=== PATIENT | female | born 1980 | race Caucasian/White ===

== ENCOUNTER → 2016-04-22 | Outpatient (CLI) | payer BC ==
--- NOTE | 2016-04-24 09:36 | MM ---
Reason for exam: screening (asymptomatic). Baseline mammogram. History: Family history of breast cancer in paternal aunt at age 50. Taking hormonal contraceptives for 15 years. Physical Findings: Nurse did not find any significant physical abnormalities on exam. MG Screening Mammo w CAD Bilateral CC and MLO view(s) were taken. The breast tissue is heterogeneously dense. This may lower the sensitivity of mammography. There is no discrete abnormality. ASSESSMENT: Benign, BI-RAD 2 RECOMMENDATION: Routine screening mammogram of both breasts at age 41.
== END | disposition home or self-care (01) ==
LOC: RADMAMWWP 07:00
PROVIDERS: ATTEND Obstetrics & Gynecology
DX: Z12.31 Encounter for screening mammogram for malignant neoplasm of breast (principal)

== ENCOUNTER → 2019-11-22 | Outpatient (CLI) | payer BC ==
--- NOTE | 2019-11-22 09:07 | MM ---
Reason for exam: additional evaluation requested from abnormal screening. Last mammogram was performed 1 month ago. History: Family history of breast cancer in 2 paternal aunts at age 50. Took hormonal contraceptives for 15 years. Physical Findings: Nurse did not find any significant physical abnormalities on exam. MG 3D Work Up W/Cad RT Spot compression CC, spot compression MLO, and LM view(s) were taken of the right breast. Prior study comparison: November 02, 2019, bilateral MG 3d screening mammo w/cad. April 22, 2016, bilateral MG screening mammo w CAD. The breast tissue is heterogeneously dense. This may lower the sensitivity of mammography. 11 x 7mm circumscribed oval mass approximately 10 o'clock position persists on the CC view, it appears to have been present on 2016 and may represent an intramammary node. These results were verbally communicated with the patient and result sheet given to the patient on 11/22/19. ASSESSMENT: Incomplete: need additional imaging evaluation, BI-RAD 0 RECOMMENDATION: Ultrasound of the right breast.
--- NOTE | 2019-11-22 09:08 | USB ---
Reason for exam: additional evaluation requested from abnormal screening. History: Family history of breast cancer in 2 paternal aunts at age 50. Took hormonal contraceptives for 15 years. US Breast Workup Limited RT Technologist: Emelyn Davila Right limited breast ultrasound including focal area of concern, retroareolar and axilla demonstrates no cystic or solid lesion seen. Scanned 9-12 o'clock. Scattered dense tissue is present. 6 month follow up mammogram for suspected intramammary lymph node previously not seen on MLO. These results were verbally communicated with the patient and result sheet given to the patient on 11/22/19. ASSESSMENT: Probably benign, BI-RAD 3 RECOMMENDATION: Follow-up diagnostic mammogram of the right breast in 6 months. (3D)
== END | disposition home or self-care (01) ==
LOC: RADMAMWWP 07:45
PROVIDERS: ATTEND Obstetrics & Gynecology
DX: R92.8 Other abnormal and inconclusive findings on diagnostic imaging of breast (principal)
CPT/HCPCS: 77061; 77065

== ENCOUNTER → 2020-08-02 | Outpatient (CLI) | payer BC ==
--- NOTE | 2020-08-02 10:11 | MM ---
Reason for exam: follow-up at short interval from prior study. Last mammogram was performed 8 months ago. History: Family history of breast cancer in 2 paternal aunts at age 50. Took hormonal contraceptives for 15 years. Physical Findings: Nurse did not find any significant physical abnormalities on exam. MG 3D Diag Mammo W/Cad RT CC and MLO view(s) were taken of the right breast. Prior study comparison: November 22, 2019, right breast MG 3d work up w/cad RT. November 02, 2019, bilateral MG 3d screening mammo w/cad. The breast tissue is heterogeneously dense. This may lower the sensitivity of mammography. There is no discrete abnormality. No significant new findings when compared with previous films. These results were verbally communicated with the patient and result sheet given to the patient on 08/02/20. ASSESSMENT: Negative, BI-RAD 1 RECOMMENDATION: Return to routine screening mammogram schedule for both breasts. Back on schedule.
== END | disposition home or self-care (01) ==
LOC: RADMAMWWP 09:12
PROVIDERS: ATTEND Obstetrics & Gynecology
DX: R92.8 Other abnormal and inconclusive findings on diagnostic imaging of breast (principal)
CPT/HCPCS: 77061; 77065

== ENCOUNTER → 2021-12-04 | Outpatient (CLI) | payer BC ==
--- NOTE | 2021-12-04 08:12 | MM ---
Reason for Exam: Screening (asymptomatic). Last mammogram was performed 2 year(s) and 1 month(s) ago. Patient History: Menarche at age 13. First Full-Term at age 24. Patient has history of breast feeding. Patient used Hormonal Contraceptives for 15 years. Paternal aunt (coleman) had breast cancer, age 50. Paternal aunt (anum) had breast cancer, age 50. Last menstrual period: 11/06/2021 Risk Values: Izzy 5 year model risk: 0.5%. NCI Lifetime model risk: 9.0%. Prior Study Comparison: 11/02/2019 Bilateral Screening Mammogram, [facility]. 11/22/2019 Right Diagnostic Mammogram, [facility]. 08/02/2020 Right Diagnostic Mammogram, [facility]. Tissue Density: The breast tissue is heterogeneously dense. This may lower the sensitivity of mammography. Findings: Analyzed By CAD. There is no suspicious group of microcalcifications or new suspicious mass in either breast. No significant change from prior exams. Overall Assessment: Benign, BI-RAD 2 Management: Screening Mammogram of both breasts in 1 year. A clinical breast exam by your physician is recommended on an annual basis and results should be correlated with mammographic findings. Electronically signed and approved by: James Yates D.O.
== END ==
LOC: RADMAMWWP 07:02
PROVIDERS: ATTEND Obstetrics & Gynecology
DX: Z12.31 Encounter for screening mammogram for malignant neoplasm of breast (principal)
CPT/HCPCS: 77063; 77067